=== PATIENT | female | born 1985 | race Caucasian/White ===

== ENCOUNTER 2016-07-21 16:45 | Emergency (ER) | payer BC ==
[2016-07-21 17:00] VITALS: BP 135/100
[2016-07-21] MEDS ORDERED: Albuterol/Ipratropium NEB.SOL* Albuterol 2.5 MG/Ipratropium 0.5 MG 3 ML INH ONE (17:53)
--- NOTE | 2016-07-21 19:04 | RAD ---
Indication: Fever. Cough. 2 views of the chest including dual energy PA views demonstrates no mediastinal shift. Heart is of normal size and configuration. Lungs are clear. No changes noted since previous exam of September 08, 2008. IMPRESSION: No active cardiopulmonary disease is noted.
[2016-07-22 14:26] LABS: Hematocrit 35 % (35-47); Hemoglobin 11.3 g/dl (12.0-16.0); Mean Corpuscular HGB Conc 32 g/dl (31-36); Mean Corpuscular Hemoglobin 28 pg (27-31); Mean Corpuscular Volume 86 fL (80-97); Mean Platelet Volume 11 um3 (7.4-10.4); Red Blood Count 4.06 10^6/ul (4.0-5.4); Red Cell Distribution Width 13 % (10.5-15); White Blood Count 5.3 10^3/ul (3.5-10.8)
[2016-07-22 16:02] LABS: Erythrocyte Sed Rate 47 mm/Hr (0-14)
--- NOTE | 2016-07-24 17:01 | UC ---
Progress - Progress Note Progress Note: See nursing note by Patrice Lucas on 07/22/16, CRP unspun, unable to be processed. Lab cancelled test. I reviewed chart, verified account number and name and , and have concluded that it is OK to cancel the CRP, that it does not need to be re-drawn. Pt had ESR done, another marker of inflammation. ESR is 47, elevated, wbc count is 5.3., not elevated. Pt was instructed to follow up with Dr. Greer on 07/25/16. No need to call pt at this time.
--- NOTE | 2016-08-18 20:59 | UC ---
Reed Brewer Aidan, scribed for Sabrina Linton MD on 07/21/16 at 1755 . FLU HPI - HPI Summary HPI Summary: 30 y/o female presents to the Urgent Care with a complaint of acute, moderate episodes of influenza-like symptoms that began 7 days ago and have persisted intermittently. 7 days ago, she got a tattoo. Shortly after she began feeling feverish for the rest of the day and the following day. 4 days ago, she felt warm, had a fever of 102, and had diffuse painful (4/10) bumps throughout her body. 2 days ago, she began having SOB on exertion that has persisted. Other associated symptoms include a lack of appetite and a productive cough producing green sputum. Pt denies any rash or recent travel, and she does not have a nebulizer at home. She has not had a flu-test this year. - History of Current Complaint Chief Complaint: UCRespiratory Stated Complaint: SOB,COUGH Time Seen by Provider: 07/21/16 17:15 Hx Obtained From: Patient Hx Last Menstrual Period: nexplanon Onset/Duration: Gradual Onset, Lasting Days, Still Present Severity Currently: None Severity Initially: Mild - [id number] during onset of pain associated with bumps (see HPI) Pain Intensity: 4 - see HPI Pain Scale Used: 0-10 Numeric Associated Signs & Symptoms: Positive: Fever - for several days (see HPI), was 102 2 days ago, Cough. 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 - Family History Known Family History: Negative: Cardiac Disease, Hypertension, Diabetes - Social History Occupation: Employed Full-time Lives: Alone Alcohol Use: None Alcohol Amount: sober for 16 months Substance Use Type: None Smoking Status (MU): Former Smoker Type: Cigarettes Amount Used/How Often: recently quit 2 weeks ago 08/2013 Review of Systems Constitutional: Fever - 102, Other - episode of feeling warm 7 days ago, lack of appetite Skin: Other - diffuse painful bumps 4 days ago Eyes: Negative ENT: Negative Respiratory: Shortness Of Breath, Cough Gastrointestinal: Negative Genitourinary: Negative Motor: Negative Neurovascular: Negative Musculoskeletal: Negative Neurological: Negative Psychological: Negative All Other Systems Reviewed And Are Negative: Yes Physical Exam Triage Information Reviewed: Yes Appearance: Well-Nourished Vital Signs: Initial Vital Signs Temp 97.8 F 07/21/16 16:55 Pulse 70 07/21/16 16:55 Resp 16 07/21/16 16:55 BP 135/100 07/21/16 16:55 Pulse Ox 99 07/21/16 16:55 Vital Signs Reviewed: Yes Eye Exam: Normal ENT Exam: Normal ENT: Positive: Other: - red EACs Neck exam: Normal Respiratory Exam: Normal, Other - no dyspnea or tachypnea Respiratory: Positive: Rhonchi Cardiovascular Exam: Normal Cardiovascular: Positive: Brisk Capillary Refill, Other: - regular rate, good general skin color Abdominal Exam: Normal Abdomen Description: Positive: Nontender, No Organomegaly, Soft Bowel Sounds: Positive: Present Musculoskeletal Exam: Normal Musculoskeletal: Positive: Strength Intact Neurological Exam: Normal, Other - nonfocal, grossly intact Psychological Exam: Normal, Other - conversing easily and approperiately Skin Exam: Normal, Other - no reported or visible rash Diagnostics - Radiology CHEST X-RAY Xray Interpretation: No Acute Changes - IMPRESSION: no active cardiopulmonary disease Radiology Interpretation Completed By: Radiologist Flu Course/Dx - Course Course Of Treatment: Blood pressure was 135/100, which is hypertensive. Pt declines analgesia other than PO nsaid. Influenza was negative. Reviewed need for f/u. questions answered to the best of my ability. - Differential Dx/Diagnosis Provider Diagnoses: Fever. Bronchospasm (likely element of bronchitis) Discharge - Discharge Plan Condition: Stable Disposition: HOME Prescriptions: Albuterol HFA INHALER* [Ventolin HFA Inhaler*] 1 - 2 puff INH Q4H PRN #1 mdi PRN Reason: Wheezing DOXYcycline CAP(*) [DOXYcycline 100MG CAP(*)] 100 mg PO BID #20 cap Patient Education Materials: Fever in Adults (ED), Bronchospasm (ED) Forms: *Work Release Referrals: Carmelina Greer MD [Primary Care Provider] - Additional Instructions: Follow up with Dr. Greer's office as scheduled on Sunday. Seek medical attention for worse or new problems in the meantime. The documentation as recorded by the Reed chavez Aidan accurately reflects the service I personally performed and the decisions made by me, Sabrina Linton MD.
== END 2016-07-21 19:27 | disposition home or self-care (01) ==
LOC: UCEAST 16:45
DX: R50.9 Fever, unspecified (principal); J98.01 Acute bronchospasm; Z32.02 Encounter for pregnancy test, result negative; Z88.5 Allergy status to narcotic agent; Z87.891 Personal history of nicotine dependence
CPT/HCPCS: 36415; 71020; 81003; 84702; 85025; 85652; 86618; 87502; 99212; A9270-GY; G0463

== ENCOUNTER 2017-12-06 02:22 | Emergency (ER) | payer BC ==
[2017-12-06] MEDS ORDERED: Acetaminophen TAB* 325 MG PO ONE (02:51)
[2017-12-06] MEDS ORDERED: Ketorolac INJ* 30 MG/ML 1 ML VIAL IV PUSH ONE (02:52)
[2017-12-06] MEDS ORDERED: Dexamethasone IV* 4 MG/ML 1 ML (4 MG) IV SLOW PU ONE (02:52)
[2017-12-06] MEDS ORDERED: Piperacillin/Tazobac ADVAN(*) 3.375 GM in NS 0.9% 100 ML* 100 ML IVPB ONE (02:52)
--- NOTE | 2017-12-06 02:52 | ED ---
Throat Pain/Nasal Congestion - HPI Summary HPI Summary: This is scribe Ke Anderson documenting for attending Dr. Em Taylor MD. This patient is a 32 year old F presenting to [facility] with a chief complaint of worsening sore throat since one week ago. Pt went to urgent care on 12/04 and was negative for strep. The patient rates the pain 7/10 in severity. Patient reports fever. Patient denies nasal congestion. I, Dr. Taylor, personally performed the services described in this documentation as scribed in my presence and it is both accurate and complete. - History of Current Complaint Chief Complaint: EDThroatPain Time Seen by Provider: 12/06/17 02:40 Hx Obtained From: Patient Onset/Duration: Sudden Onset, Lasting Weeks - 1 Severity: Moderate - 7/10 Associated Signs And Symptoms: Negative: Sinus Discomfort, Nasal Discharge - Allergies/Home Medications Allergies/Adverse Reactions: Allergies Allergy/AdvReac Type Severity Reaction Status Date / Time codeine Allergy Hives Verified 12/06/17 02:52 PMH/Surg Hx/FS Hx/Imm Hx Endocrine/Hematology History: Denies: Hx Diabetes, Hx Thyroid Disease Cardiovascular History: Denies: Hx Hypertension Respiratory History: Denies: Hx Asthma, Hx Chronic Obstructive Pulmonary Disease (COPD) GI History: Denies: Hx Ulcer - Surgical History Surgery Procedure, Year, and Place: 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 Infectious Disease History: No Infectious Disease History: Denies: Hx Clostridium Difficile, Hx Hepatitis, Hx Human Immunodeficiency Virus (HIV), Hx of Known/Suspected MRSA, Hx Shingles, Hx Tuberculosis, History Other Infectious Disease - hsv 1, Traveled Outside the [place] in Last 30 Days - Family History Known Family History: Negative: Cardiac Disease, Hypertension, Diabetes - Social History Alcohol Use: None Alcohol Amount: sober for 16 months Substance Use Type: Reports: None Hx Tobacco Use: Yes Smoking Status (MU): Former Smoker Type: Cigarettes Amount Used/How Often: recently quit 2 weeks ago 08/2013 Review of Systems Positive: Fever Positive: Sore Throat. Negative: Nasal Discharge All Other Systems Reviewed And Are Negative: Yes Physical Exam - Summary Physical Exam Summary: GENERAL: Patient is a well-developed and nourished female who is lying comfortable in the stretcher. Patient is not in any acute respiratory distress. HEAD AND FACE: No signs of trauma. No ecchymosis, hematomas or skull depressions. No sinus tenderness. EYES: PERRLA, EOMI x 2, No injected conjunctiva, no nystagmus. EARS: Hearing grossly intact. Ear canals and tympanic membranes are within normal limits. MOUTH: Bilateral upper cervical adenopathy. Mild pharyngeal erythema, no exudate. NECK: Supple, trachea is midline, no adenopathy, no JVD, no carotid bruit, no c- spine tenderness, neck with full ROM. CHEST: Symmetric, no tenderness at palpation LUNGS: Clear to auscultation bilaterally. No wheezing or crackles. CVS: Regular rate and rhythm, S1 and S2 present, no murmurs or gallops appreciated. ABDOMEN: Soft, non-tender. No signs of distention. No rebound no guarding, and no masses palpated. Bowel sounds are normal. EXTREMITIES: FROM in all major joints, no edema, no cyanosis or clubbing. NEURO: Alert and oriented x 3. No acute neurological deficits. Speech is normal and follows commands. SKIN: Dry and warm Triage Information Reviewed: Yes Vital Signs On Initial Exam: Initial Vitals Temp Pulse Resp BP Pulse Ox 99.5 F 75 16 134/91 98 12/06/17 02:25 12/06/17 02:25 12/06/17 02:25 12/06/17 02:25 12/06/17 02:25 Vital Signs Reviewed: Yes Diagnostics - Vital Signs Vital Signs Temp Pulse Resp BP Pulse Ox 12/06/17 02:25 99.5 F 75 16 134/91 98 - Laboratory Result Diagrams: 12/06/17 03:15 12/06/17 03:15 Lab Statement: Any lab studies that have been ordered have been reviewed, and results considered in the medical decision making process. EENT Course/Dx - Course Course Of Treatment: This patient is a 32 year old F presenting to [facility] with a chief complaint of worsening sore throat since one week ago. Pt went to urgent care on 12/04 and was negative for strep. The patient rates the pain 7/10 in severity. Patient reports fever. Patient denies nasal congestion. In the ED course the patient was given Acetaminophen and IV fluids. Patient will be discharged with prescription for Amoxicillin, Prednisone, and Ibuprofen. The patient is agreeable with this plan. - Diagnoses Provider Diagnoses: Pharyngitis Discharge - Sign-Out/Discharge Documenting (check all that apply): Patient Departure - discharge - Discharge Plan Condition: Stable Disposition: HOME Prescriptions: Amoxicillin/Clavulanate TAB* [Augmentin TAB 875*] 875 mg PO BID #14 tab Ibuprofen TAB* [Motrin TAB* 600 MG] 600 mg PO Q6H PRN #30 tab PRN Reason: Fever/Pain predniSONE [Prednisone 20 MG TAB] 20 mg PO DAILY #3 tablet Patient Education Materials: Pharyngitis (ED) Forms: *Work Release Referrals: Carmelina Greer MD [Primary Care Provider] - Additional Instructions: RETURN TO THE EMERGENCY DEPARTMENT FOR CHANGING OR WORSENING SYMPTOMS. - Attestation Statements Document Initiated by Scribe: Yes Documenting Scribe: Ke Anderson Provider For Whom Scribe is Documenting (Include Credential): Em Taylor MD Scribe Attestation: Ke Brewer, scribed for Em Taylor MD on 12/06/17 at 0408.
[2017-12-06] MEDS: NS 0.9% 1000 ML*IV.FLUID IV ONE (03:12)
[2017-12-06 03:39] LABS: ABS Basophils 0.1 10^3/ul (0-0.2); ABS Eosinophils 0 10^3/ul (0-0.6); ABS Lymphocytes 1.8 10^3/ul (1.0-4.8); ABS Monocytes 0.7 10^3/ul (0-0.8); ABS Neutrophils 3.7 10^3/ul (1.5-7.7); ABS Nucleated RBC 0 10^3/ul; Eosinophil % 0.4 % (0-6); Hematocrit 30 % (35-47); Hemoglobin 9.9 g/dl (12.0-16.0); Lymphocyte % 28.7 % (25-47); Mean Corpuscular HGB Conc 33 g/dl (31-36); Mean Corpuscular Hemoglobin 27 pg (27-31); Mean Corpuscular Volume 82 fL (80-97); Mean Platelet Volume 9.5 um3 (7.4-10.4); Nucleated Red Blood Cells % 0.1; Platelet Count 199 10^3/ul (150-450); Red Blood Count 3.69 10^6/ul (4.00-5.40); Red Cell Distribution Width 16 % (10.5-15); White Blood Count 6.4 10^3/ul (3.5-10.8)
[2017-12-06 04:04] VITALS: BP 122/85
== END 2017-12-06 04:14 | disposition home or self-care (01) ==
LOC: ED 02:22
DX: J02.9 Acute pharyngitis, unspecified (principal); R50.9 Fever, unspecified; Z87.891 Personal history of nicotine dependence
CPT/HCPCS: 36415; 80053; 85025; 86140; 86308; 87651; 96361; 96365; 96374; 96375; 99283; A9270-GY; J1100; J1885; J2543